=== PATIENT | male | born 1975 | race Caucasian/White ===

== ENCOUNTER 2018-03-24 14:26 | Inpatient (IN) | payer MEDICAID, OTHER ==
[~2018-03-24] VITALS: Ht 175.3 cm; Wt 91.3 kg
[2018-03-24 15:42] LABS: Basophils # (auto) 0.1 uL; Basophils % (auto) 1.2 % (0.0-2.0); Eosinophils # (auto) 0.5 uL; Eosinophils % (auto) 4.2 % (0.0-7.0); Lymphocytes # (auto) 2.4 uL; Neutrophils % (auto) 66.9 % (37.0-80.0)
[2018-03-24 15:43] LABS: Hematocrit 51.6 % (41.0-53.0); Hemoglobin 17.9 g/dL (13.5-17.5); Lymphocytes % (auto) 20.8 % (10.0-50.0); Mean Corpuscular Hemoglobin 32.7 pg (28.0-32.0); Mean Corpuscular Hgb Conc. 34.7 g/dL (32.0-36.0); Mean Corpuscular Volume 94.4 fL (80.0-100.0); Monocytes # (auto) 0.8 uL; Monocytes % (auto) 6.9 % (0.0-12.0); Neutrophils # (auto) 7.7 uL; Nucleated Red Blood Cells % 0.1 %; Platelet Count (auto) 214 10^3/uL (140-450); Red Blood Cells 5.46 10^6/uL (4.5-5.90); Red Cell Distribution Width 13.3 % (11.8-14.3); White Blood Cell 11.5 10^3/uL (4.4-10.8)
[2018-03-24 15:56] LABS: Potassium 4.2 mmol/L (3.5-5.1)
[2018-03-24 16:06] LABS: Alcohol, Urine < 3.0 mg/dL (0-5); Amphetamine Screen, Urine NEGATIVE (NEGATIVE); Barbiturate Scree,Urine NEGATIVE (NEGATIVE); Benzodiazephine Screen, Urine NEGATIVE (NEGATIVE); Cannabinoid Screen, Urine POSITIVE (NEGATIVE); Cocaine Screen, Urine NEGATIVE (NEGATIVE); Opiate Scree,Urine NEGATIVE (NEGATIVE); Phencyclidine Screen, Urine NEGATIVE (NEGATIVE)
[2018-03-24 16:08] LABS: INR 0.98 (0.9-1.15); Partial Thromboplastin Time 24.5 sec (23.78-33.04); Prothrombin Time 10.5 sec (9.27-12.13)
[2018-03-24 16:20] LABS: Bilirubin, Total 0.7 mg/dL (0.2-1.0); Total Protein 8.2 g/dL (6.4-8.2)
[2018-03-24 16:23] LABS: Urine Bacteria NONE SEEN /hpf (None Seen); Urine Blood Negative /uL (Negative); Urine Mucus FEW (None Seen); Urine Specific Gravity 1.027 (1.001-1.035); Urine WBC <1 /hpf (0 - 3)
[2018-03-24] MEDS ORDERED: NICOTINE 21MG/24 HR TOPICAL PATCH TD ONE (16:30)
[2018-03-24] MEDS ORDERED: ACETAMINOPHEN 325 MG TAB PO PRN (16:45)
[2018-03-24] MEDS ORDERED: chlordiazePOXIDE HCL 25 MG CAP PO PRN (16:45)
[2018-03-24] MEDS ORDERED: DEXTROSE (50%) 50ML SYRG IV PRN (16:45)
[2018-03-24] MEDS ORDERED: ASPirin-EC 81 mg tab PO ONE (16:45)
[2018-03-24] MEDS ORDERED: ALUM & MAG HYDROX-SIMETH LIQ(MAALOX) 30 ML PO PRN (16:45)
[2018-03-24] MEDS ORDERED: ONDANSETRON HCL 4 MG/2 ML VIAL IV PRN (16:45)
[2018-03-24] MEDS ORDERED: NITROGLYCERIN 0.4 MG SL TAB SL PRN (16:45)
[2018-03-24] MEDS ORDERED: DOCUSATE SOD 100 MG CAP PO PRN (16:45)
[2018-03-24] MEDS ORDERED: ATENOLOL 25 MG TAB PO ONE (16:45)
[2018-03-24] MEDS ORDERED: MORPHINE SULFATE 4 MG/ML SYR/VIAL IV PRN ×2 (16:45)
[2018-03-24] MEDS ORDERED: TEMAZEPAM 15 MG CAP PO PRN (16:45)
[2018-03-24] MEDS: ACCU-CHEK COMFORT CURVE STRIP VI SCH ×2 (17:40→22:00)
[2018-03-24] MEDS: SODIUM CHLORIDE 0.9% 1,000 ML IV SCH (17:40)
[2018-03-24] MEDS: InsuLIN REG 1unit/0.01ml Soln (100units/ml) SC SCH ×2 (17:40→22:21)
[2018-03-24 18:00] VITALS: BP 123/99
[2018-03-24] MEDS ORDERED: METF-370 PO (18:44)
[2018-03-24 18:45] VITALS: BP 123/99
[2018-03-24] MEDS ORDERED: INFLUENZA QUAD 2018-2019 0.5 ML SYRG IM ONE (19:00)
[2018-03-24 21:37] VITALS: BP 130/80
[2018-03-24] MEDS: GABAPENTIN 300 MG CAP PO SCH (21:59)
[2018-03-24] MEDS: FAMOTIDINE 20 MG TAB PO SCH (21:59)
[2018-03-24] MEDS: ATORVASTATIN 20 MG TAB PO SCH (21:59)
[2018-03-24] MEDS: ATENOLOL 25 MG TAB PO SCH (22:00)
[2018-03-25] MEDS: HYDROcodone-ACET 5/325MG TAB PO PRN ×4 (04:49→20:33)
[2018-03-25 05:30] VITALS: BP 117/97
[2018-03-25] MEDS: ACCU-CHEK COMFORT CURVE STRIP VI SCH ×4 (06:45→21:33)
[2018-03-25] MEDS: InsuLIN REG 1unit/0.01ml Soln (100units/ml) SC SCH ×4 (06:45→21:33)
[2018-03-25 07:00] LABS: Potassium 4.2 mmol/L (3.5-5.1)
[2018-03-25 07:12] LABS: Albumin 3.4 g/dL (3.4-5.0); BUN/Creatinine Ratio 17.3; Bilirubin, Total 0.9 mg/dL (0.2-1.0); Calcium 8.6 mg/dL (8.5-10.1)
[2018-03-25 07:21] LABS: Basophils # (auto) 0.1 uL; Basophils % (auto) 1.1 % (0.0-2.0); Eosinophils # (auto) 0.5 uL; Hematocrit 48.4 % (41.0-53.0); Hemoglobin 16.7 g/dL (13.5-17.5); Lymphocytes # (auto) 2.7 uL; Lymphocytes % (auto) 24.7 % (10.0-50.0); Mean Corpuscular Hemoglobin 32.5 pg (28.0-32.0); Mean Corpuscular Hgb Conc. 34.5 g/dL (32.0-36.0); Mean Corpuscular Volume 94.1 fL (80.0-100.0); Monocytes # (auto) 0.6 uL; Monocytes % (auto) 5.2 % (0.0-12.0); Neutrophils # (auto) 6.9 uL; Nucleated Red Blood Cells % 0.1 %; Platelet Count (auto) 184 10^3/uL (140-450); Red Blood Cells 5.14 10^6/uL (4.5-5.90); Red Cell Distribution Width 13.3 % (11.8-14.3); White Blood Cell 10.8 10^3/uL (4.4-10.8)
[2018-03-25 09:00] VITALS: BP 134/103
[2018-03-25] MEDS: MULTIPLE VITAMIN TAB PO SCH (10:20)
[2018-03-25] MEDS: ASPirin-EC 81 mg tab PO SCH (10:20)
[2018-03-25] MEDS: FAMOTIDINE 20 MG TAB PO SCH ×2 (10:20→21:32)
[2018-03-25] MEDS: ATENOLOL 25 MG TAB PO SCH ×2 (10:21→21:33)
[2018-03-25] MEDS: GABAPENTIN 300 MG CAP PO SCH ×3 (10:21→21:32)
[2018-03-25] MEDS: ENOXAPARIN SOD 40 MG/0.4 ML SYRINGE SC SCH (10:22)
[2018-03-25] MEDS: SODIUM CHLORIDE 0.9% 1,000 ML IV SCH (10:23)
[2018-03-25 11:56] VITALS: BP 134/97
[2018-03-25 16:11] VITALS: BP 136/95
[2018-03-25] MEDS ORDERED: LORazepam 2MG/ML-1ML VIAL IV PRN (20:45)
[2018-03-25] MEDS: NICOTINE 21MG/24 HR TOPICAL PATCH TD SCH (21:31)
[2018-03-25] MEDS: ATORVASTATIN 20 MG TAB PO SCH (21:32)
[2018-03-25 21:52] VITALS: BP 131/79
[2018-03-26] MEDS: SODIUM CHLORIDE 0.9% 1,000 ML IV SCH ×2 (01:55→18:36)
[2018-03-26] MEDS: HYDROcodone-ACET 5/325MG TAB PO PRN ×3 (05:22→21:58)
[2018-03-26 05:52] VITALS: BP 149/105
[2018-03-26] MEDS: InsuLIN REG 1unit/0.01ml Soln (100units/ml) SC SCH ×4 (06:28→22:09)
[2018-03-26] MEDS: GABAPENTIN 300 MG CAP PO SCH ×3 (06:28→21:48)
[2018-03-26] MEDS: ACCU-CHEK COMFORT CURVE STRIP VI SCH ×4 (06:28→22:07)
[2018-03-26 06:42] LABS: Basophils # (auto) 0.1 uL; Basophils % (auto) 0.8 % (0.0-2.0); Eosinophils # (auto) 0.5 uL; Eosinophils % (auto) 4.8 % (0.0-7.0); Hemoglobin 16.9 g/dL (13.5-17.5); Lymphocytes # (auto) 2.5 uL; Lymphocytes % (auto) 26.5 % (10.0-50.0); Mean Corpuscular Hemoglobin 33.2 pg (28.0-32.0); Mean Corpuscular Hgb Conc. 35.3 g/dL (32.0-36.0); Mean Corpuscular Volume 94.1 fL (80.0-100.0); Monocytes # (auto) 0.8 uL; Monocytes % (auto) 8.8 % (0.0-12.0); Neutrophils # (auto) 5.6 uL; Neutrophils % (auto) 59.1 % (37.0-80.0); Platelet Count (auto) 189 10^3/uL (140-450); White Blood Cell 9.5 10^3/uL (4.4-10.8)
[2018-03-26 07:23] LABS: Cholesterol 212 mg/dL (< 200); HDL Cholesterol 28 mg/dL (40-59); LDL Cholesterol 155 mg/dL (< 100); Triglycerides 237 mg/dL (< 150)
[2018-03-26 07:38] LABS: BUN/Creatinine Ratio 13.4; Calcium 8.5 mg/dL (8.5-10.1); Potassium 4.2 mmol/L (3.5-5.1)
[2018-03-26 09:00] VITALS: BP 152/98
[2018-03-26] MEDS: FAMOTIDINE 20 MG TAB PO SCH ×2 (11:35→21:48)
[2018-03-26] MEDS: ATENOLOL 25 MG TAB PO SCH ×2 (11:35→22:00)
[2018-03-26] MEDS: MULTIPLE VITAMIN TAB PO SCH (11:35)
[2018-03-26] MEDS: ENOXAPARIN SOD 40 MG/0.4 ML SYRINGE SC SCH (11:36)
[2018-03-26] MEDS: ASPirin-EC 81 mg tab PO SCH (11:36)
[2018-03-26] MEDS ORDERED: GADOPENTETATE DIMEGLUMINE (10MMOL/20 ML) VIAL IV ONE (12:36)
[2018-03-26 13:00] VITALS: BP 138/98
[2018-03-26 17:00] VITALS: BP 140/88
[2018-03-26] MEDS ORDERED: ATOR20TA50 PO (17:38)
[2018-03-26] MEDS ORDERED: GABA300C10 PO (17:38)
[2018-03-26] MEDS ORDERED: ASP81EC PO (17:38)
[2018-03-26] MEDS ORDERED: METF-370 PO (17:38)
[2018-03-26] MEDS: NICOTINE 21MG/24 HR TOPICAL PATCH TD SCH (21:46)
[2018-03-26 22:00] VITALS: BP 110/85
[2018-03-26] MEDS ORDERED: ATORVASTATIN 20 MG TAB PO SCH (22:00)
[2018-03-27] MEDS: GABAPENTIN 300 MG CAP PO SCH ×2 (05:31→14:21)
[2018-03-27 05:40] VITALS: BP 142/91
[2018-03-27] MEDS: ACCU-CHEK COMFORT CURVE STRIP VI SCH ×2 (05:43→14:21)
[2018-03-27] MEDS: InsuLIN REG 1unit/0.01ml Soln (100units/ml) SC SCH ×2 (05:43→11:30)
[2018-03-27 06:28] LABS: Basophils # (auto) 0.1 uL; Basophils % (auto) 0.9 % (0.0-2.0); Eosinophils # (auto) 0.5 uL; Hematocrit 48.2 % (41.0-53.0); Hemoglobin 17.1 g/dL (13.5-17.5); Lymphocytes # (auto) 2.6 uL; Lymphocytes % (auto) 29.2 % (10.0-50.0); Mean Corpuscular Hemoglobin 33.5 pg (28.0-32.0); Mean Corpuscular Hgb Conc. 35.5 g/dL (32.0-36.0); Mean Corpuscular Volume 94.3 fL (80.0-100.0); Monocytes # (auto) 0.9 uL; Monocytes % (auto) 9.8 % (0.0-12.0); Neutrophils # (auto) 4.8 uL; Neutrophils % (auto) 54.1 % (37.0-80.0); Nucleated Red Blood Cells % 0.1 %; Platelet Count (auto) 182 10^3/uL (140-450); Red Blood Cells 5.11 10^6/uL (4.5-5.90); Red Cell Distribution Width 13.3 % (11.8-14.3); White Blood Cell 8.8 10^3/uL (4.4-10.8)
[2018-03-27 06:43] LABS: BUN/Creatinine Ratio 18.4; Calcium 8.5 mg/dL (8.5-10.1); Potassium 3.8 mmol/L (3.5-5.1)
[2018-03-27 08:00] VITALS: BP 144/107
[2018-03-27 09:00] VITALS: BP_SYST 132; BP_SYST 144; BP_DIAS 107; BP_DIAS 97
[2018-03-27] MEDS: MULTIPLE VITAMIN TAB PO SCH (10:15)
[2018-03-27] MEDS: FAMOTIDINE 20 MG TAB PO SCH (10:15)
[2018-03-27] MEDS: ASPirin-EC 81 mg tab PO SCH (10:15)
[2018-03-27] MEDS: ATENOLOL 25 MG TAB PO SCH (10:16)
[2018-03-27] MEDS: ENOXAPARIN SOD 40 MG/0.4 ML SYRINGE SC SCH (10:16)
[2018-03-27] MEDS: NICOTINE 21MG/24 HR TOPICAL PATCH TD SCH (10:17)
[2018-03-27] MEDS: HYDROcodone-ACET 5/325MG TAB PO PRN (10:26)
[2018-03-27] MEDS: SODIUM CHLORIDE 0.9% 1,000 ML IV SCH (11:15)
[2018-03-27 13:00] VITALS: BP 130/70
[2018-03-27 17:00] VITALS: BP 103/75
[2018-03-27 17:07] VITALS: BP 103/75
== END 2018-03-27 19:05 | disposition home or self-care (01) | DRG 45 ==
LOC: ER 14:29 → TELE 14:30 → TELE-CENTR 18:12
PROVIDERS: ADMIT Internal Medicine; ATTEND Internal Medicine
DX: I63.9 Cerebral infarction, unspecified (principal); E11.21 Type 2 diabetes mellitus with diabetic nephropathy; E11.22 Type 2 diabetes mellitus with diabetic chronic kidney disease; D75.1 Secondary polycythemia; E11.65 Type 2 diabetes mellitus with hyperglycemia; E87.1 Hypo-osmolality and hyponatremia; G40.209 Localization-related (focal) (partial) symptomatic epilepsy and epileptic syndromes with complex partial seizures, not intractable, without status epilepticus; R47.01 Aphasia; N18.2 Chronic kidney disease, stage 2 (mild); E78.5 Hyperlipidemia, unspecified; F12.90 Cannabis use, unspecified, uncomplicated; F17.210 Nicotine dependence, cigarettes, uncomplicated; F10.10 Alcohol abuse, uncomplicated; I12.9 Hypertensive chronic kidney disease with stage 1 through stage 4 chronic kidney disease, or unspecified chronic kidney disease; Z79.82 Long term (current) use of aspirin; Z79.899 Other long term (current) drug therapy; Z83.3 Family history of diabetes mellitus; Z85.118 Personal history of other malignant neoplasm of bronchus and lung; Z85.47 Personal history of malignant neoplasm of testis; Z85.841 Personal history of malignant neoplasm of brain; Z90.79 Acquired absence of other genital organ(s); Z92.21 Personal history of antineoplastic chemotherapy
CPT/HCPCS: 36415; 70450; 70551; 71250; 80048; 80053; 80061; 80307; 81001; 82105; 82962; 83036; 83615; 84443; 84702; 85025; 85610; 85730; 87040; 87086; 93005; 93306; 93886; 95819; 96360; J1815

== ENCOUNTER 2018-04-08 07:57 | Emergency (ER) | payer MEDICAID ==
[~2018-04-08] VITALS: Ht 175.3 cm; Wt 89.8 kg
[~2018-04-08 07:57] MED LIST: ASP81EC PO; ATOR20TA50 PO; GABA300C10 PO; METF-370 PO
[2018-04-08 08:46] LABS: Alcohol, Urine < 3.0 mg/dL (0-5); Amphetamine Screen, Urine NEGATIVE (NEGATIVE); Barbiturate Scree,Urine NEGATIVE (NEGATIVE); Benzodiazephine Screen, Urine POSITIVE (NEGATIVE); Cannabinoid Screen, Urine POSITIVE (NEGATIVE); Cocaine Screen, Urine NEGATIVE (NEGATIVE)
[2018-04-08 08:50] LABS: Urine Bacteria NONE SEEN /hpf (None Seen); Urine Blood Negative /uL (Negative); Urine Specific Gravity 1.026 (1.001-1.035); Urine WBC 1 /hpf (0 - 3)
[2018-04-08 08:53] LABS: Opiate Scree,Urine NEGATIVE (NEGATIVE); Phencyclidine Screen, Urine NEGATIVE (NEGATIVE)
[2018-04-08 08:54] LABS: Basophils # (auto) 0.1 uL; Eosinophils # (auto) 0.3 uL; Eosinophils % (auto) 3.4 % (0.0-7.0); Hematocrit 49.2 % (41.0-53.0); Lymphocytes # (auto) 2.7 uL; Lymphocytes % (auto) 25.9 % (10.0-50.0); Mean Corpuscular Hemoglobin 32.8 pg (28.0-32.0); Mean Corpuscular Hgb Conc. 34.6 g/dL (32.0-36.0); Mean Corpuscular Volume 94.7 fL (80.0-100.0); Monocytes # (auto) 0.7 uL; Monocytes % (auto) 7.1 % (0.0-12.0); Neutrophils # (auto) 6.4 uL; Neutrophils % (auto) 62.6 % (37.0-80.0); Nucleated Red Blood Cells % 0.1 %; Platelet Count (auto) 252 10^3/uL (140-450); White Blood Cell 10.3 10^3/uL (4.4-10.8)
[2018-04-08 09:09] LABS: INR 0.96 (0.9-1.15); Partial Thromboplastin Time 24.5 sec (23.78-33.04); Prothrombin Time 10.3 sec (9.27-12.13)
[2018-04-08 09:14] LABS: Potassium 4.6 mmol/L (3.5-5.1)
[2018-04-08 09:20] LABS: Bilirubin, Total 0.4 mg/dL (0.2-1.0); Total Protein 7.9 g/dL (6.4-8.2)
[2018-04-08] MEDS ORDERED: HYDROcodone-ACET 5/325MG TAB PO ONE (10:00)
[2018-04-08 10:29] VITALS: BP 138/99
[2018-04-10] MEDS ORDERED: KEP500T PO (10:26)
== END 2018-04-08 12:33 | disposition home or self-care (01) ==
LOC: ER 07:57
DX: G45.9 Transient cerebral ischemic attack, unspecified (principal); F12.90 Cannabis use, unspecified, uncomplicated; E11.9 Type 2 diabetes mellitus without complications; I10 Essential (primary) hypertension; Z87.891 Personal history of nicotine dependence; Z79.899 Other long term (current) drug therapy; Z79.82 Long term (current) use of aspirin
CPT/HCPCS: 36415; 70450; 71046; 80053; 80307; 81001; 82962; 85025; 85610; 85730; 94761

== ENCOUNTER 2018-04-13 15:19 | Emergency (ER) | payer MEDICAID ==
[~2018-04-13] VITALS: Ht 182.9 cm; Wt 90.7 kg
[~2018-04-13 15:19] MED LIST changes: +KEP500T PO
[2018-04-13] MEDS ORDERED: LORazepam 2MG/ML-1ML VIAL IV ONE (15:30)
[2018-04-13] MEDS ORDERED: SODIUM CHLORIDE 0.9% 1,000 ML IV ONE (15:30)
[2018-04-13 16:03] LABS: Basophils # (auto) 0.1 uL; Basophils % (auto) 0.5 % (0.0-2.0); Eosinophils # (auto) 0.3 uL; Eosinophils % (auto) 2.7 % (0.0-7.0); Hematocrit 41.6 % (41.0-53.0); Hemoglobin 14.7 g/dL (13.5-17.5); Lymphocytes # (auto) 2.1 uL; Lymphocytes % (auto) 19.7 % (10.0-50.0); Mean Corpuscular Hemoglobin 32.9 pg (28.0-32.0); Mean Corpuscular Hgb Conc. 35.2 g/dL (32.0-36.0); Mean Corpuscular Volume 93.5 fL (80.0-100.0); Monocytes # (auto) 0.9 uL; Neutrophils # (auto) 7.4 uL; Neutrophils % (auto) 69.1 % (37.0-80.0); Nucleated Red Blood Cells % 0.2 %; Platelet Count (auto) 230 10^3/uL (140-450); Red Blood Cells 4.45 10^6/uL (4.5-5.90); Red Cell Distribution Width 12.9 % (11.8-14.3); White Blood Cell 10.7 10^3/uL (4.4-10.8)
[2018-04-13 16:18] LABS: Alanine Aminotransferase 64 U/L (16-61); Albumin 3.7 g/dL (3.4-5.0); Anion Gap 9 (5-15); Aspartate Aminotransferase 24 U/L (15-37); BUN/Creatinine Ratio 16.5; Blood Urea Nitrogen 15 mg/dL (7-18); Calcium 8.5 mg/dL (8.5-10.1); Carbon Dioxide 23 mmol/L (21-32); Chloride 105 mmol/L (98-107); GFR African American 118 mL/min; GFR Non-African American 98 mL/min; Glucose 112 mg/dL (74-106); Potassium 4.1 mmol/L (3.5-5.1); Sodium 137 mmol/L (136-145)
[2018-04-13 16:23] LABS: Alkaline Phosphatase 96 U/L (45-117); Bilirubin, Total 0.3 mg/dL (0.2-1.0); Total Protein 6.8 g/dL (6.4-8.2)
[2018-04-13 16:39] VITALS: BP 125/94
[2018-04-13 17:06] LABS: Urine Bacteria NONE SEEN /hpf (None Seen); Urine Blood Negative /uL (Negative); Urine Specific Gravity 1.009 (1.001-1.035); Urine WBC <1 /hpf (0 - 3)
== END 2018-04-13 18:16 | disposition home or self-care (01) ==
LOC: EDBD 15:19 → ER 15:19
DX: R56.9 Unspecified convulsions (principal); R55 Syncope and collapse; E11.9 Type 2 diabetes mellitus without complications; I10 Essential (primary) hypertension; F12.90 Cannabis use, unspecified, uncomplicated; Z87.891 Personal history of nicotine dependence; Z86.73 Personal history of transient ischemic attack (TIA), and cerebral infarction without residual deficits
CPT/HCPCS: 36415; 70450; 80053; 81001; 84484; 85025; 96361; 96374; 99285; J2060; J7030

== ENCOUNTER 2018-04-14 19:38 | Inpatient (IN) | payer MEDICAID ==
[~2018-04-14] VITALS: Ht 167.6 cm; Wt 90.7 kg
[2018-04-14 21:52] LABS: Basophils # (auto) 0.1 uL; Basophils % (auto) 0.5 % (0.0-2.0); Eosinophils # (auto) 0.3 uL; Eosinophils % (auto) 2.8 % (0.0-7.0); Hematocrit 44.3 % (41.0-53.0); Lymphocytes # (auto) 2.1 uL; Lymphocytes % (auto) 19.3 % (10.0-50.0); Mean Corpuscular Hemoglobin 31.9 pg (28.0-32.0); Mean Corpuscular Hgb Conc. 33.9 g/dL (32.0-36.0); Mean Corpuscular Volume 93.9 fL (80.0-100.0); Monocytes # (auto) 0.9 uL; Monocytes % (auto) 8.1 % (0.0-12.0); Neutrophils # (auto) 7.6 uL; Neutrophils % (auto) 69.3 % (37.0-80.0); Nucleated Red Blood Cells % 0.1 %; Platelet Count (auto) 237 10^3/uL (140-450); Red Blood Cells 4.72 10^6/uL (4.5-5.90); Red Cell Distribution Width 12.9 % (11.8-14.3)
[2018-04-14 22:10] LABS: Alanine Aminotransferase 62 U/L (16-61); Albumin 3.9 g/dL (3.4-5.0); Anion Gap 12 (5-15); Aspartate Aminotransferase 26 U/L (15-37); Blood Alcohol < 3.0 mg/dL (0-5); Blood Urea Nitrogen 18 mg/dL (7-18); Calcium 8.7 mg/dL (8.5-10.1); Carbon Dioxide 22 mmol/L (21-32); Chloride 103 mmol/L (98-107); GFR African American 120 mL/min; GFR Non-African American 99 mL/min; Glucose 119 mg/dL (74-106); Magnesium 1.9 mg/dL (1.6-2.6); Sodium 137 mmol/L (136-145)
[2018-04-14 22:13] LABS: Alkaline Phosphatase 99 U/L (45-117); Bilirubin, Total 0.3 mg/dL (0.2-1.0); Total Protein 7.2 g/dL (6.4-8.2)
[2018-04-14 22:28] LABS: Alcohol, Urine < 3.0 mg/dL (0-5); Amphetamine Screen, Urine NEGATIVE (NEGATIVE); Barbiturate Scree,Urine NEGATIVE (NEGATIVE); Benzodiazephine Screen, Urine POSITIVE (NEGATIVE); Cannabinoid Screen, Urine POSITIVE (NEGATIVE); Cocaine Screen, Urine NEGATIVE (NEGATIVE); Opiate Scree,Urine NEGATIVE (NEGATIVE); Phencyclidine Screen, Urine NEGATIVE (NEGATIVE)
[2018-04-15] MEDS ORDERED: LEVETIRACETAM 500 MG TAB PO ONE (00:45)
[2018-04-15] MEDS ORDERED: PHENYTOIN SODIUM 100 MG CAP PO ONE ×3 (00:45→01:45)
[2018-04-15] MEDS ORDERED: PHENYTOIN IV DILANTIN 1,000 MG in SODIUM CHL 0.9% 250 ML IV ONE ×3 (01:15→15:30)
[2018-04-15] MEDS ORDERED: PHENYTOIN SODIUM 50 MG/ML 5ML INJ VIAL IV ONE (01:29)
[2018-04-15] MEDS ORDERED: PHENYTOIN IV DILANTIN 500 MG in SODIUM CHL 0.9% 100 ML IV ONE (01:45)
[2018-04-15] MEDS ORDERED: DEXTROSE (50%) 50ML SYRG IV PRN (06:30)
[2018-04-15] MEDS ORDERED: LORazepam 2MG/ML-1ML VIAL IV PRN (06:30)
[2018-04-15] MEDS: InsuLIN REG 1unit/0.01ml Soln (100units/ml) SC SCH ×3 (07:00→17:30)
[2018-04-15] MEDS: ACCU-CHEK COMFORT CURVE STRIP VI SCH ×3 (07:13→17:21)
[2018-04-15] MEDS ORDERED: ACETAMINOPHEN 500 MG TAB PO PRN (07:45)
[2018-04-15] MEDS ORDERED: ONDANSETRON HCL 4 MG/2 ML VIAL IV PRN (07:45)
[2018-04-15 09:15] VITALS: BP 126/84
[2018-04-15] MEDS ORDERED: LEVETIRACETAM 500 MG TAB PO SCH (10:00)
[2018-04-15] MEDS ORDERED: ASPirin-EC 81 mg tab PO SCH (10:00)
[2018-04-15] MEDS: HYDROcodone-ACET 5/325MG TAB PO PRN ×2 (12:07→18:16)
[2018-04-15 12:37] VITALS: BP 122/83
[2018-04-15] MEDS: GABAPENTIN 300 MG CAP PO SCH ×2 (14:00→18:09)
[2018-04-15] MEDS ORDERED: METF-370 PO (14:02)
[2018-04-15] MEDS ORDERED: OMEP20TA PO (14:03)
[2018-04-15] MEDS ORDERED: LORazepam 2MG/ML-1ML VIAL IV ONE (14:30)
[2018-04-15] MEDS ORDERED: PHE100C PO (15:27)
[2018-04-15 16:36] VITALS: BP 157/92
[2018-04-15 20:19] VITALS: BP 157/92
[2018-04-15] MEDS ORDERED: ATORVASTATIN 20 MG TAB PO SCH (22:00)
[2018-04-15] MEDS ORDERED: PHENYTOIN SODIUM 100 MG CAP PO SCH (22:00)
== END 2018-04-15 22:18 | disposition home health service (06) | DRG 53 ==
LOC: EDBD 19:38 → ER 19:38 → OVERFLOW 04-15 05:28 → WEST WING 04-15 08:14
PROVIDERS: ADMIT Nurse Practitioner Family; ATTEND Internal Medicine
DX: G40.409 Other generalized epilepsy and epileptic syndromes, not intractable, without status epilepticus (principal); E11.9 Type 2 diabetes mellitus without complications; I10 Essential (primary) hypertension; K21.9 Gastro-esophageal reflux disease without esophagitis; Z85.841 Personal history of malignant neoplasm of brain; Z86.73 Personal history of transient ischemic attack (TIA), and cerebral infarction without residual deficits; Z87.891 Personal history of nicotine dependence
CPT/HCPCS: 36415; 70450; 70551; 71045; 80053; 80185; 80307; 80320; 82962; 83735; 85025; 87081; 96365; G0378; J1815

== ENCOUNTER 2023-05-30 13:29 | Emergency (ER) | payer SELFPAY ==
[~2023-05-30] VITALS: Ht 175.3 cm; Wt 84.3 kg
[~2023-05-30 13:29] MED LIST changes: -ASP81EC PO; +ASPI-394 PO; +GABA-1250 PO; -GABA300C10 PO; +OMEP20TA PO; +PHEN1CAP60 PO
[2023-05-30] MEDS ORDERED: SODIUM CHLORIDE 0.9% 1,000 ML IV ONE (14:00)
[2023-05-30 14:28] LABS: Urine Bacteria NONE SEEN /hpf (None Seen); Urine Blood Negative /uL (Negative); Urine Clarity Clear (Clear); Urine Color Yellow (Yellow); Urine Protein, UAD TRACE (Negative); Urine Specific Gravity 1.028 (1.001-1.035); Urine Urobilinogen Normal (Negative); Urine WBC 1 /hpf (0 - 3)
[2023-05-30 15:16] LABS: Basophils # (auto) 0.1 10 ^3/uL (0-0.2); Basophils % (auto) 0.5 % (0.0-2.0); Eosinophils # (auto) 0.3 10 ^3/uL (0-0.8); Eosinophils % (auto) 2.9 % (0.0-7.0); Hematocrit 47.6 % (41.0-53.0); Lymphocytes # (auto) 2.3 10 ^3/uL (0.4-5.4); Lymphocytes % (auto) 20.5 % (10.0-50.0); Mean Corpuscular Hemoglobin 32.1 pg (28.0-32.0); Mean Corpuscular Hgb Conc. 33.6 g/dL (32.0-36.0); Mean Corpuscular Volume 95.7 fL (80.0-100.0); Monocytes # (auto) 1.1 10 ^3/uL (0-1.3); Monocytes % (auto) 9.7 % (0.0-12.0); Neutrophils # (auto) 7.4 10 ^3/uL (1.6-8.6); Neutrophils % (auto) 66.4 % (37.0-80.0); Nucleated Red Blood Cells % 0.1 %; Red Blood Cells 4.97 10^6/uL (4.5-5.90); Red Cell Distribution Width 13.4 % (11.8-14.3); White Blood Cell 11.1 10^3/uL (4.4-10.8)
[2023-05-30 15:44] LABS: Alanine Aminotransferase 57 U/L (7-40); Albumin 4.9 g/dL (3.2-4.8); Alkaline Phosphatase 145 U/L (46-116); Anion Gap 8 (5-15); Aspartate Aminotransferase 29 U/L (13-40); BUN/Creatinine Ratio 9.6 (10.0-20.0); Bilirubin, Total 0.6 mg/dL (0.2-1.0); Blood Urea Nitrogen 9 mg/dL (9-23); Calcium 9.5 mg/dL (8.5-10.1); Carbon Dioxide 27 mmol/L (20-30); Chloride 103 mmol/L (98-107); Glucose 153 mg/dL (74-106); Sodium 138 mmol/L (136-145); Total Protein 7.6 g/dL (5.7-8.2)
[2023-05-30 17:13] LABS: Lipase 42 U/L (12-53)
[2023-05-30 17:14] LABS: Magnesium 1.8 mg/dL (1.6-2.6)
[2023-05-30 18:02] VITALS: BP 132/90; PULSE 102; RESP 18; TEMP 97.8; O2SAT 96
== END 2023-05-30 18:06 | disposition home or self-care (01) ==
LOC: ER 13:29
DX: R10.9 Unspecified abdominal pain (principal); I10 Essential (primary) hypertension; E11.9 Type 2 diabetes mellitus without complications; Z86.73 Personal history of transient ischemic attack (TIA), and cerebral infarction without residual deficits; Z87.891 Personal history of nicotine dependence; Z79.82 Long term (current) use of aspirin; Z79.899 Other long term (current) drug therapy
CPT/HCPCS: 36415; 74176; 80053; 81001; 83605; 83690; 83735; 85025; 87040; 96360; 99284; J7030